=== PATIENT | female | born 1970 | race Caucasian/White ===

== ENCOUNTER → 2023-05-01 15:43 | Outpatient (REF) | payer OTHER, SELFPAY ==
[2023-05-01 16:19] LABS: % Basophils 0.5 % (0-2); % Eosinophils 1.1 % (0-6); % Immature Granulocytes 0.2 % (0-0.5); % Lymphocytes 25.9 % (20.5-51.1); % Monocytes 7.9 % (1.7-9.3); % Neutrophils 64.4 % (42.2-75.2); Absolute Basophils 0.1 10^3/uL (0-0.2); Absolute Eosinophils 0.1 10^3/uL (0-0.7); Absolute Lymphocytes 2.4 10^3/uL (1.2-3.4); Absolute Monocytes 0.7 10^3/uL (0.1-0.6); Absolute Neutrophils 5.9 10^3/uL (1.4-6.5); Hematocrit 39.5 % (37.0-47.0); Mean Corp Hgb Conc. 35.4 g/dL (33.0-37.0); Mean Corpuscular Hgb 31.3 pg (27.0-31.0); Mean Corpuscular Volume 88.2 fL (81.0-99.0); Mean Platelet Volume 9.5 fL (7.4-10.4); Nucleated Red Blood Cells % 0 %; Platelet Count 344 10^3/uL (130-400); Red Blood Cell Count 4.48 10^6/uL (4.20-5.40); Red Cell Dist. Width 12.1 % (11.5-14.5); White Blood Cell Count 9.1 10^3/uL (4.8-10.8)
[2023-05-01 16:25] LABS: ALT (SGPT) 14 U/L (0-35); AST (SGOT) 21 U/L (14-36); Albumin 4.8 g/dl (3.5-5.0); Alkaline Phosphatase 71 U/L (38-126); Blood Urea Nitrogen 11 mg/dl (7-17); Calcium 10.3 mg/dl (8.4-10.2); Carbon Dioxide 26 mmol/L (22-30); Chloride 98 mmol/L (98-107); Glucose 104 mg/dl (70-99); Potassium 4.6 mmol/L (3.5-5.1); Sodium 139 mmol/L (135-145); Total Bilirubin 0.9 mg/dl (0.2-1.3); Total Protein 7.9 g/dl (6.3-8.2); eGFR > 60.00
== END ==
LOC: REG 15:43
PROVIDERS: ATTENDING PHYSICIAN Nurse Practitioner Primary Care
DX: R10.32 Left lower quadrant pain (principal); R10.814 Left lower quadrant abdominal tenderness
CPT/HCPCS: 36415; 80053; 85025

== ENCOUNTER → 2023-05-02 08:17 | Outpatient (REF) | payer OTHER, SELFPAY | LOC: RAD 08:17 | PROVIDERS: ATTENDING PHYSICIAN Nurse Practitioner Primary Care | DX: R10.32 Left lower quadrant pain (principal); R10.814 Left lower quadrant abdominal tenderness | CPT/HCPCS: 74177; Q9967 ==

== ENCOUNTER → 2023-07-04 11:25 | Outpatient (REF) | payer OTHER, SELFPAY ==
[2023-07-04 12:09] LABS: % Basophils 0.5 % (0-2); % Eosinophils 1.3 % (0-6); % Immature Granulocytes 0.2 % (0-0.5); % Lymphocytes 28.1 % (20.5-51.1); % Monocytes 6.8 % (1.7-9.3); % Neutrophils 63.1 % (42.2-75.2); Absolute Eosinophils 0.1 10^3/uL (0-0.7); Absolute Lymphocytes 1.8 10^3/uL (1.2-3.4); Absolute Monocytes 0.4 10^3/uL (0.1-0.6); Hematocrit 38.3 % (37.0-47.0); Mean Corp Hgb Conc. 33.9 g/dL (33.0-37.0); Mean Corpuscular Hgb 30.6 pg (27.0-31.0); Mean Corpuscular Volume 90.1 fL (81.0-99.0); Mean Platelet Volume 9.4 fL (7.4-10.4); Nucleated Red Blood Cells % 0 %; Platelet Count 304 10^3/uL (130-400); Red Blood Cell Count 4.25 10^6/uL (4.20-5.40); White Blood Cell Count 6.3 10^3/uL (4.8-10.8)
[2023-07-04 12:43] LABS: ALT (SGPT) 18 U/L (0-35); AST (SGOT) 23 U/L (14-36); Albumin 4.7 g/dl (3.5-5.0); Alkaline Phosphatase 68 U/L (38-126); Blood Urea Nitrogen 11 mg/dl (7-17); Carbon Dioxide 26 mmol/L (22-30); Chloride 103 mmol/L (98-107); Glucose 87 mg/dl (70-99); Potassium 4.7 mmol/L (3.5-5.1); Sodium 138 mmol/L (135-145); Total Bilirubin 0.5 mg/dl (0.2-1.3); Total Protein 7.4 g/dl (6.3-8.2); eGFR > 60.00
== END ==
LOC: RAD 11:25
PROVIDERS: ATTENDING PHYSICIAN Nurse Practitioner Family; FAMILY PHYSICIAN Nurse Practitioner Primary Care
DX: R10.32 Left lower quadrant pain (principal)
CPT/HCPCS: 36415; 74177; 80053; 85025; Q9967

== ENCOUNTER → 2023-09-01 14:00 | Outpatient (REF) | payer OTHER, SELFPAY ==
[2023-09-01 14:32] LABS: % Basophils 0.3 % (0-2); % Eosinophils 0.3 % (0-6); % Immature Granulocytes 0.3 % (0-0.5); % Lymphocytes 20.1 % (20.5-51.1); Absolute Lymphocytes 1.9 10^3/uL (1.2-3.4); Absolute Monocytes 0.7 10^3/uL (0.1-0.6); Absolute Neutrophils 6.8 10^3/uL (1.4-6.5); Hematocrit 39.8 % (37.0-47.0); Hemoglobin 13.9 g/dL (12.0-16.0); Mean Corp Hgb Conc. 34.9 g/dL (33.0-37.0); Mean Corpuscular Hgb 30.5 pg (27.0-31.0); Mean Corpuscular Volume 87.3 fL (81.0-99.0); Mean Platelet Volume 9.3 fL (7.4-10.4); Nucleated Red Blood Cells % 0 %; Platelet Count 347 10^3/uL (130-400); Red Blood Cell Count 4.56 10^6/uL (4.20-5.40); White Blood Cell Count 9.4 10^3/uL (4.8-10.8)
[2023-09-01 14:46] LABS: ALT (SGPT) 20 U/L (0-35); AST (SGOT) 24 U/L (14-36); Albumin 5.1 g/dl (3.5-5.0); Alkaline Phosphatase 75 U/L (38-126); Amylase 53 U/L (30-110); Blood Urea Nitrogen 10 mg/dl (7-17); Calcium 10.3 mg/dl (8.4-10.2); Carbon Dioxide 27 mmol/L (22-30); Chloride 103 mmol/L (98-107); Glucose 93 mg/dl (70-99); Lipase 57 U/L (23-300); Potassium 4.8 mmol/L (3.5-5.1); Sodium 142 mmol/L (135-145); Total Bilirubin 0.5 mg/dl (0.2-1.3); eGFR > 60.00
== END ==
LOC: REG 14:00
PROVIDERS: ATTENDING PHYSICIAN Nurse Practitioner Family
DX: R10.84 Generalized abdominal pain (principal); Z87.19 Personal history of other diseases of the digestive system; K21.9 Gastro-esophageal reflux disease without esophagitis; J45.20 Mild intermittent asthma, uncomplicated; Z13.89 Encounter for screening for other disorder
CPT/HCPCS: 36415; 80053; 82150; 83690; 85025

== ENCOUNTER 2023-09-02 23:43 | Inpatient (IN) | payer OTHER, SELFPAY ==
[2023-09-02 20:04] VITALS: BP 118/82
[2023-09-02 20:18] VITALS: BMI 26.4
[2023-09-02 20:19] VITALS: BP 138/101
[2023-09-02 20:36] VITALS: BP 110/82
[2023-09-02 20:40] LABS: Urine Albumin Negative (Neg - Trace); Urine Bilirubin Negative (Negative); Urine Character Clear (Clear); Urine Color Yellow; Urine Glucose Negative (Negative); Urine Ketone Trace (Negative); Urine Leukocyte Trace (Negative); Urine Nitrite Negative (Negative); Urine Occult Blood Negative (Negative); Urine Urobilinogen Negative (Neg - 1+)
[2023-09-02 20:49] LABS: Urine Red Blood Cell 0-2 /HPF (0-2)
[2023-09-02 20:53] LABS: Urine Bacteria Few (Negative)
--- NOTE | 2023-09-02 20:53 | ED.GENMED ---
History of Present Illness
General
Chief Complaint: Abdominal Pain
Source: patient
Exam Limitations: none
Time Seen by Provider: 09/02/23 20:17
Nursing documentation reviewed up to this point in time: agreed with
Travel History
Have you had any contact with someone who has COVID-19?: No
Do you have any symptoms of coronavirus? Fever > 100 degrees, chills, cough, shortness of breath, sore throat, loss of taste or smell, muscle aches, or headache?: No
History of Present Illness
History of Present Illness:
Patient is a 53-year-old female who present to the ER complaining of right sided abdominal pain. She has had this pain for the past several days. She reports it felt similar to her diverticulitis and her family doctor ordered an outpatient CAT
scan. She was unaware however the CAT scan showed a hepatic right lobe cyst which seemed inflamed or infected. She was unaware of this cyst. Her family doctor attempted to call GI to try to follow-up with them this week however she presents with
worsening pain. She complains of right-sided abdominal pain and has pain worse with taking a deep breath. She denies however feeling short of breath. She has intermittent chills and feels nauseous but has not vomited
Past History
Past History
ED Past Medical History: Asthma, Hypercholesterolemia, Hypothyroidism and Other (has been told she has a herniated disc.)
ED Past Surgical History: Appendectomy, Orthopedic (Right and left shoulder repair) and Other (Agree with past surgical history)
Social History
Tobacco: Non-smoker
Alcohol: Occasional
Personal:
Living: with family
Employment: Employed (nurse)
Review of Systems
Review of Systems
Allergies reviewed?: Yes
All Other Systems: ROS reviewed and negative except as documented in HPI and ROS
Constitutional: Reports no symptoms
ABD/GI: Reports abdominal pain and nausea; Denies vomiting, diarrhea or constipated
: Reports no symptoms
Musculoskeletal: Reports no symptoms
Skin: Reports no symptoms
Neurological: Reports no symptoms
Psychiatric: Reports no symptoms
Phy Exam
General Physical Exam
General Presentation: well appearing
General age: appears stated age
General Skin: warm and dry
General Habitus: normal
General Mental: alert
General Hydration: appears well hydrated
Neurological Exam
Neurological Exam: alert and oriented x3
Musculoskeletal Exam
Musculoskeletal Exam: full ROM
Skin Exam
Skin Exam: normal color and warm/dry
Psychiatric Exam
Psychiatric Exam: normal mood/affect
Course
Orders/Labs/Results
Orders:
Orders
09/02/23 20:31
Urinalysis Reflex To Culture Urgent
Date Specimen was Collected: 09/02/23
Time Specimen was Collected: 20:17
Urine Microscopic Reflex Cult Urgent
09/02/23 20:54
IV Insert/Care/Rem.- Treatment PRN
0.9% Sodium Chloride 1000 ml [Nss] 1,000 ml IV BOLUS
Ketorolac [Toradol] 15 mg IV NOW STA
Ondansetron Injectable [Zofran] 4 mg IV NOW STA
09/02/23 21:05
Complete Blood Count/With Diff Urgent
Comprehensive Metabolic Panel Urgent
Lactic Acid Q4H
Comment: CANCEL 2nd LACTIC ACID IF 1st LACTIC ACID IS LESS THAN 2
Blood Culture Q30M
JAIME Source: Blood/Venous
Specimen Description:
09/02/23 21:06
Blood Culture Q30M
JAIME Source: Blood/Venous
Specimen Description:
09/03/23 01:00
Lactic Acid Q4H
Comment: CANCEL 2nd LACTIC ACID IF 1st LACTIC ACID IS LESS THAN 2
Abnormal Lab Results
09/02/23 09/02/23
20:31 21:05
Absolute Monos (auto) 0.8 H 10^3/uL
(0.1-0.6)
Glucose 178 H mg/dl
(70-99)
Urine Ketones Trace A
(Negative)
Leukocyte Esterase Rfl Trace A
(Negative)
Urine Bacteria (Reflex) Few A
(Negative)
09/02/23 21:05
09/02/23 21:05
Vital Signs
Initial and Last Documented VS:
Initial Vital Signs
Temp Pulse Resp BP Pulse Ox
98.5 F 107 18 118/82 96
09/02/23 20:04 09/02/23 20:04 09/02/23 20:04 09/02/23 20:04 09/02/23 20:04
Last Documented Vital Signs
Temp Pulse Resp BP Pulse Ox
98.7 F 99 17 111/79 96
09/02/23 20:25 09/02/23 21:00 09/02/23 21:00 09/02/23 21:00 09/02/23 21:00
MDM/Problems Addressed
MDM/Problems Addressed:
Patient is a 53-year-old female who has had pain in the right abdomen/mid abdomen for the past several days associate with nausea chills. She had outpatient CAT scan ordered by family doctor which showed acute inflammatory change of hepatic lobe 5
cm cyst suspicious for hepatic cyst infection. She is afebrile here with normal white count normal lactic acid. She presented to the ER today because of worsening pain. She was given Toradol here which has improved her symptoms.
Case discussed with Dr. Galindo of GI , will admit to the hospital service. Patient will likely need ID and IR for drain as recommended by GI blood cultures were done. Discussed with admitting hospitalist
*Radiology
Radiology exam reviewed: radiology read reviewed
*Pulse Oximetry
Patient hypoxic: no
*Critical Care Note
Total Time (30-74mins, 75-104mins- exclusive of procedures): Not Applicable
Patient Management
Discussion with other providers: Newspaper Photographer (GI Keli Galindo )
ED Attending Note
-
Portions of this chart may have been created with voice recognition software.� Occasional wrong word or��sound alike� substitutions may have occurred due to the inherent limitations of voice recognition software.
Discharge Plan
Departure
Patient Disposition: Admit
Date of Disposition: 09/02/23
Time of Disposition: 22:39
Admit to: Med/Surg
Admit to doctor: hospitalist
Presentation/result/management discussed w/ accepting MD/DO: Hospitalist
Patient with high blood pressure during this ER visit?: No
Condition: Fair
Covid-19: Not Applicable
Discharge Problem:
hepatic cyst infection
Prescriptions:
No Action
albuterol sulfate 1 PUFF HFA aerosol inhaler
2 puff inhalation Q4HPRN PRN (Reason: sob, wheezing)
budesonide-formoterol [Symbicort] 1 PUFF HFA aerosol inhaler
2 puff inhalation R BID PRN (Reason: Lung/breathing issues)
acetaminophen 325 MG tablet
650 mg PO Q6HPRN PRN (Reason: mild pain)
levothyroxine 75 MCG tablet
75 mcg PO DAILY
ibuprofen 200 MG tablet
200 mg PO Q4HPRN PRN (Reason: mild pain)
multivitamin with folic acid [Tab-A-Kinga] 1 TABLET tablet
1 tab PO DAILY
metformin 500 mg Tablet
500 mg PO BID
docusate sodium [Colace] 100 mg Capsule
100 mg PO DAILY
Probiotic 20 billion cell Capsule
20,000 mmu cells PO DAILY
Referrals:
Lanny Kaminski CRNP [Family Provider] -
Interventions
Interventions:
*Risk Screen - Suicide Last Done: 09/02/23 20:04
*General Assessment Last Done: 09/02/23 20:04
*Neglect/Abuse Screening Last Done: 09/02/23 20:04
ED- Fall Risk Assessment Last Done: 09/02/23 20:19
*ED COVID-19 Vaccine History Last Done: 09/02/23 20:46
KT-Liovwq-Vjdrfciioz Assessment Last Done: 09/02/23 20:19
Discharge Date and Time
Print Language: PORTUGUESE
[2023-09-02] MEDS: ZOFRAN 4 MG IV (20:59)
[2023-09-02] MEDS: TORADOL 15 MG IV (20:59)
[2023-09-02 21:00] VITALS: BP 111/79
[2023-09-02] MEDS: NSS 1000 IV (21:00)
[2023-09-02 21:15] LABS: % Basophils 0.6 % (0-2); % Eosinophils 0.8 % (0-6); % Immature Granulocytes 0.4 % (0-0.5); % Lymphocytes 22.7 % (20.5-51.1); % Monocytes 8.9 % (1.7-9.3); % Neutrophils 66.6 % (42.2-75.2); Absolute Basophils 0.1 10^3/uL (0-0.2); Absolute Eosinophils 0.1 10^3/uL (0-0.7); Absolute Lymphocytes 1.9 10^3/uL (1.2-3.4); Absolute Monocytes 0.8 10^3/uL (0.1-0.6); Absolute Neutrophils 5.7 10^3/uL (1.4-6.5); Hematocrit 37.7 % (37.0-47.0); Hemoglobin 13.7 g/dL (12.0-16.0); Mean Corp Hgb Conc. 36.3 g/dL (33.0-37.0); Mean Corpuscular Hgb 30.9 pg (27.0-31.0); Mean Corpuscular Volume 84.9 fL (81.0-99.0); Mean Platelet Volume 9.5 fL (7.4-10.4); Nucleated Red Blood Cells % 0 %; Platelet Count 339 10^3/uL (130-400); Red Blood Cell Count 4.44 10^6/uL (4.20-5.40); Red Cell Dist. Width 11.8 % (11.5-14.5); White Blood Cell Count 8.5 10^3/uL (4.8-10.8)
[2023-09-02 21:31] LABS: ALT (SGPT) 19 U/L (0-35); AST (SGOT) 24 U/L (14-36); Albumin 4.7 g/dl (3.5-5.0); Alkaline Phosphatase 75 U/L (38-126); Blood Urea Nitrogen 9 mg/dl (7-17); Calcium 9.9 mg/dl (8.4-10.2); Carbon Dioxide 24 mmol/L (22-30); Chloride 101 mmol/L (98-107); Estimated Creatinine Clearance 88 ml/min; Glucose 178 mg/dl (70-99); Lactic Acid 0.8 mmol/L (0.7-2.0); Potassium 3.8 mmol/L (3.5-5.1); Sodium 137 mmol/L (135-145); Total Bilirubin 0.5 mg/dl (0.2-1.3); Total Protein 7.4 g/dl (6.3-8.2); eGFR > 60.00
[2023-09-02 22:00] VITALS: BP 111/71
--- NOTE | 2023-09-02 22:53 | HPS.HSE ---
Addendum entered and electronically signed by Graham Posey MD 09/02/23 23:27:
I saw and examined the patient.
The PRIVACY MANAGER or PA's note was reviewed and I agree with the note.
Comment: see update note
Original Note:
Family Physician
-
Family Physician: ILA Avila
Chief Complaint
-
Abdominal Pain
History of Present Illness
This is a 53 year old female with past medical history of diverticulitis, diabetes mellitus, asthma, and hypothyroidism who presents to the emergency department for abdominal pain. The patient reports the pain is in the right upper quadrant and
epigastric region since Friday08/29/2023. Patient reports that the pain was a 3/10 when it began but worsened to a 9-10/10 today. The patient reports the pain is worse with inspiration and that she was experiencing chills and felt fatigued. Patient
was seen by her PCP as outpatient who ordered a CT scan which raised suspicion for an infected hepatic cyst and she was sent to the emergency department for evaluation. Patient denies fevers, or vomiting.
Medical History
Past Medical History
Past Medical History: Reports Other
Additional Past Medical History:
Diabetes Mellitus, Type II
Asthma
Hypothyroidism
Past Surgical History: Reports Other
Additional Past Surgical History:
Appendectomy
Bilateral Shoulder Surgery
[place]
Dental Surgery
Social History
Tobacco: Non-smoker
Alcohol: None
Family History
Family History: Not pertinent
Allergies / Home Medications
Allergies reflects when Allergies were last updated in [facility].
Home Medications with original date entered in [facility]
Allergy/Medication List:
Allergies
Allergy/AdvReac Type Severity Reaction Status Date / Time
acetaminophen [From Percocet] Allergy Itching Verified 02/18/21 10:42
oxycodone HCl [From Percocet] Allergy Itching Verified 02/18/21 10:42
pantoprazole sodium Allergy Swelling Verified 02/18/21 10:42
[From Protonix]
Home Medications
albuterol sulfate 90 mcg/actuation aerosol inhaler 2 puff inhalation Q4HPRN PRN sob, wheezing 02/18/21
budesonide-formoterol HFA 160 mcg-4.5 mcg/actuation aerosol inhaler (Symbicort) 2 puff inhalation R BID PRN Lung/breathing issues 02/18/21
acetaminophen 325 mg tablet 650 mg PO Q6HPRN PRN mild pain 02/20/21
ibuprofen 200 mg tablet 200 mg PO Q4HPRN PRN mild pain 02/20/21
levothyroxine 75 mcg tablet 75 mcg PO DAILY Thyroid 02/20/21
multivitamin with folic acid 400 mcg tablet (Tab-A-Kinga) 1 tab PO DAILY Supplement 02/20/21
docusate sodium 100 mg capsule (Colace) 100 mg PO DAILY 09/02/23
lactobacillus comb no.10 20 billion cell capsule (Probiotic) 20,000 mmu cells PO DAILY 09/02/23
metformin 500 mg tablet 500 mg PO BID 09/02/23
Review of Systems
-
A 12 point ROS was completed and negative except as noted: Yes
Constitutional: Reports Chills; Denies Fever
Respiratory: Denies Cough or Trouble Breathing
Cardiac: Denies Chest Pain or Palpitations
Abdomen/GI: Reports See HPI
Physical Exam
Vital Signs
Vital Signs
Temp Pulse Resp BP Pulse Ox
98.7 F 75 12 111/71 96
09/02/23 20:25 09/02/23 22:00 09/02/23 22:00 09/02/23 22:00 09/02/23 21:00
Physical Exam
General: Comfortable and Conversant
HEENT: Anicteric and Moist mucous membranes
Respiratory: Clear and Non Labored Respirations
Cardiac: S1/S2 and Regular Rhythm
GI: Soft and Tender
Rectal: Deferred by Provider
Musculoskeletal: No Clubbing, No Cyanosis and No Edema
Skin: Warm and Dry
Neuro: Awake, Alert and Nonfocal/grossly intact
Psych: Calm
Laboratory Results
-
09/02/23 21:05
09/02/23 21:05
Laboratory Results
Lactic Acid 0.8 mmol/L (0.7-2.0) 09/02/23 21:05
Total Bilirubin 0.5 mg/dl (0.2-1.3) 09/02/23 21:
AST 24 U/L (14-36) 09/02/23 21:05
ALT 19 U/L (0-35) 09/02/23 21:05
Alkaline Phosphatase 75 U/L (38-126) 09/02/23 21:05
Data Reviewed
-
CT Scan: Report Reviewed by me
Lab Data: Labs Reviewed by me
Impression/Plan
-
Infected Hepatic Cyst
-Consult IR for drainage
-Consult ID for antibiotics recommendation
-Start empiric Zosyn
-Await blood cultures
Diabetes Mellitus, Type II
-Hold metformin post CT scan with IV contrast
-Monitor sugars and continue coverage insulin
Asthma, no acute exacerbation
-Continue Symbicort
Hypothyroidism
-Continue levothyroxine
DVT proph: SCDs
Code Status: Full Code
[2023-09-02 23:00] VITALS: BP 110/78
--- NOTE | 2023-09-02 23:12 | W.PN.UPDATE ---
Addendum entered and electronically signed by Graham Posey MD 09/02/23 23:26:
This note serves as an addendum to the H&P by italian tutor CHELSIE Elba SINCLAIR
Original Note:
Update Note
Progress Note Update
HPI
53F prediabetic HX Simple right lobe hepatic cyst as of 07/16/23 CT AP seen at ER for abdominal pain
Evaluation of abdominal pain:
- acute non traumatic worsening RUQ and epigastric pain since Friday08/30/23
- currently pain is 9/10
- worse with deep breathing
- POS intermittent chills and nausea this . No vomiting
- felt like prio acute diverticulitis
- OP CT AP by PCP suggest hepatic right lobe cyst which seemed inflamed or infected.
- HX Diverticulitis in Apr and June of this year treated with Augmentin
At ER
severe abdominalgia
s/p IV Toradol decreased pain
PMHX
Asthma
Hypercholesterolemia
Hypothyroidism
Herniated disc
PSHX
Appendectomy
Right and left shoulder repair
SHx
Tobacco: Non-smoker
Alcohol: Occasional
Personal:
Living: with family
Employment: Employed (nurse)
Reviewed VS: Afebrile HR 100 BP 110/70
PE
Gen: non toxic looking
HEENT: anicteric
Neck: supple
Lungs: CTA
Cor: RRR ST
Abdomen: soft, mild tenderness at RHC, pain with deep breathing , no guarding , NRT, active BS
OPERATING ROOM RN: AAO3
MS: no edema
Psych: appropriate
Data
Unremarkable CBC
Normal platelets
Unremarkable
NEG LA
BC x 2 sent
09/02/23 CT Abd/pelvis W Iv Cont
1. Acute inflammatory change of hepatic right lobe 5 cm cyst. No associated increased attenuation to suggest hemorrhagic cyst. Findings are therefore suspicious for hepatic cyst infection. No other acute abnormality identified.
2. Unchanged 9 4 mm nodule left lower lobe. Chronic mild changes of fibrosis bilateral lung bases.
3. Diverticulosis without diverticulitis.
07/04/23 CT Abd/pel W Iv And Oral Contr
1. Simple right lobe hepatic cyst as well as additional subcentimeter low-attenuation scattered hepatic lesions too small to characterize.
2. Descending and sigmoid colon diverticulosis. Possible short segment wall thickening of the distal descending colon which is at least suspicious for mild uncomplicated acute inflammatory/infectious process such as diverticulitis.
Last hospitalist admission: 02/20/21- 02/24/21
PRIMARY DIAGNOSES:
1. COVID pneumonia with respiratory insufficiency.
2. Syncope, suspected volume depletion.
3. Mild transaminitis.
ASSESSMENT & PLAN
Suspicious for hepatic cyst infection.
CT suspect acute inflammatory change of hepatic right lobe 5 cm cyst.
Acute worsening severe RUQ and epigastric pain and tenderness with ST
HX Diverticulitis in Apr and June of this year
- BCx x2 sent
- check PCT, ESR and CRP
- sips of clear and IVF
- Empiric Zosyn
- PRN narcotic analgesia
- DC NSAIDs
- Consult: GI, IR and ID
Hypothyroid
- on Synthroid
DVT Px: SCD
Code: Full
IP TLM
[2023-09-02] MEDS: DILAUDID 0.5 MG IV (23:18)
[2023-09-02 23:22] LABS: Erythrocyte Sed Rate 30 mm/hour (0-20)
[2023-09-02 23:34] LABS: Procalcitonin < 0.05 ng/ml (0.0-0.25)
[2023-09-03] VITALS (19 sets, daily range): BP systolic 68–132; BP diastolic 59–91; BMI 26.3
[2023-09-03 00:26] LABS: Glucose - Point of Care 81 mg/dl (70-99)
[2023-09-03] MEDS: NSS 1000 IV ×2 (00:29→17:12)
[2023-09-03] MEDS: ZOSYN 50 IV ×5 (00:30→23:48)
--- NOTE | 2023-09-03 00:30 | PTCARENOTE ---
Received patient from ED into room 2123. Ambulated to the bed from the hallway, needs no assistance. AAOx3. VSS. Reports pain of 3/10 when not moving, 6-7/10 during inspiration. See assessment. IVF started at 80 ml/hr into R AC. Oriented pt to room.
Resting comfortably, no complaints at this time, call arnold within reach.
[2023-09-03] MEDS: SYNTHROID 75 MCG PO (05:54)
[2023-09-03 06:03] LABS: Glucose - Point of Care 77 mg/dl (70-99)
[2023-09-03] MEDS: TYLENOL 650 MG PO ×2 (06:06→10:32)
--- NOTE | 2023-09-03 07:12 | CON.GI ---
Addendum entered and electronically signed by Hayde Galindo DO 09/03/23 11:21:
Patient seen and examined independently of LIA. I agree with her note with my additions below
Ronnie is a 53-year-old female with history of GERD, prior diverticulitis, advanced rectal polyp that was removed via EMR who comes in with acute onset abdominal pain in the right upper quadrant that is worse with inspiration. It started on
Friday and she felt unwell, almost viral-like but had no fever but did have some mild chills. She had a decreased appetite and did not eat much. Denies any nausea or vomiting, has difficulty laying on her left side because of the pain. It is
tolerable unless she takes a deep breath. She denies any other significant GI symptoms.
In the emergency room she had a CT scan with IV contrast and oral contrast. Her gallbladder slightly contracted but otherwise unremarkable, pancreas and spleen are unremarkable. No inflammatory reaction throughout the opacified bowel. Large
number of distal colonic diverticula but no diverticulitis.
In the inferior right lobe of the liver just adjacent to the duodenum there is a 5 cm cyst which shows simple fluid attenuation. It is unchanged from the CT scan from June but there is some very mild cyst wall thickening and mild enhancement with
a very small amount of inflammatory stranding along the anterior and inferior aspects of the cyst. No internal increased attenuation or gas. Mild enhancement of the hepatic parenchyma surrounding the cyst. It is not compressing the duodenum but
is adjacent. There is no ductal dilatation.
She is afebrile, white count is 6.2, liver enzymes are normal with an ALT of 19, AST of 24, total bilirubin of 0.6, alkaline phosphatase 68, negative procalcitonin. Blood cultures are pending. Zosyn was started empirically and ID has been consulted
# Abdominal pain with inspiration -clinically and on imaging her picture fits with a symptomatic hepatic cyst. Other etiologies for her pain -doubt cholecystitis
# Symptomatic hepatic cyst 5 cm -with very mild enhancement surrounding the cyst with very mild stranding, adjacent to the duodenum but not compressing it
-- Blood cultures are pending and empiric antibiotics were started
-- ID has been consulted
-- Patient is symptomatic from the cyst and have reached out to IR to see if they could possibly drain it
-- I have also reached out to one of the cleaner assistant at [facility] as a curbside and awaiting response
-- I did review the images with ID and gen surgery
-- In the meantime clear liquid diet
Original Note:
Consultation
-
Date/Time Consultation Requested: 09/03/23 0000
Date/Time Consultation Performed: 09/03/23 0845
Requesting Provider: Christiana Burnham PA-C
Performing Provider: LIA Frank, Hayde Galindo DO
Reason for Consultation: hepatic cyst
Medical History
Chief Complaint / HPI
History of Present Illness:
Pt is a 53yo with hx asthma, hypothyroidism, GERD, NIDDM, covid with concern for long covid symptoms, diverticulitis, TA polyps, rectal polyp with low grade dysplasia prior EMR in 2018. She had follow up EGD/colon in 2021 with gastric polyps,
erythema, diverticulosis, hemorrhoids, rectal scar and DC TA polyp. She relates in April and June she had CT confirmed diverticulitis with OP antibiotic treatment with improvement. Last CT in June with also noted simple hepatic cyst with
additional subCM low attenuation hepatic lesions. She now presents with onset of abdominal pain in right upper quadrant. Pain was up to 9/10 and worse with deep breath and chill without fever but some increased fatigue and decreased appetite. On
admission repeat CT with concern for inflammatory changes around right 5 cm hepatic cyst with concern for infection. Also noted 4 mm nodular opacity and diverticulosis without diverticulitis.
At this time she admit to chronic GERD on Pepcid and nausea without vomiting. Abdominal pain is 9/10 with deep breath on admission. 3/10 at rest and now 6/10 after admission with pain meds. She describes pain as fullness in RUQ. She also
has chronic constipation with also hx thyroid disease with improvement with Colace. No issues with rectal bleeding.
Past Medical History
Past Medical History: Asthma, Cancer (basal cell CA, squamous cell CA), GERD, Hypothyroidism, NIDDM and Other (herniated, allergic Rhinitis, osteo knee, meniscus tear, covid with long covid symptoms, rectal polyps with low grade dysplasia s/p EMR
2018)
Past Surgical History: Appendectomy, Orthopedic (b/l shoulder surgery) and Other (wisdom teeth, dental surgery)
Social History
Tobacco: Non-Smoker
Alcohol: None
Drug: None
Personal:
Living: With Family
Family History
Family History: Other (no family hx colon CA or polyps)
Allergies / Home Medications
Allergy/AdvReac Type Severity Reaction Status Date / Time
acetaminophen [From Percocet] Allergy Itching Verified 02/18/21 10:42
oxycodone HCl [From Percocet] Allergy Itching Verified 02/18/21 10:42
pantoprazole sodium Allergy Swelling Verified 02/18/21 10:42
[From Protonix]
�Medication �Instructions �Recorded
albuterol sulfate 90 mcg/actuation 2 puff inhalation Q4HPRN PRN sob, 02/18/21
aerosol inhaler wheezing
budesonide-formoterol HFA 160 2 puff inhalation R BID PRN 02/18/21
mcg-4.5 mcg/actuation aerosol Lung/breathing issues
inhaler (Symbicort)
acetaminophen 325 mg tablet 650 mg PO Q6HPRN PRN mild pain 02/20/21
ibuprofen 200 mg tablet 200 mg PO Q4HPRN PRN mild pain 02/20/21
levothyroxine 75 mcg tablet 75 mcg PO DAILY Thyroid 02/20/21
multivitamin with folic acid 400 1 tab PO DAILY Supplement 02/20/21
mcg tablet (Tab-A-Kinga)
docusate sodium 100 mg capsule 100 mg PO DAILY 09/02/23
(Colace)
lactobacillus comb no.10 20 20,000 mmu cells PO DAILY 09/02/23
billion cell capsule (Probiotic)
metformin 500 mg tablet 500 mg PO BID 09/02/23
Review of Systems
-
History Source: Patient
Constitutional: Reports Fatigue, Chills and Other (decreased appetite )
EENT: Reports No Symptoms
Respiratory: Reports Trouble Breathing (with RUQ pain worse with deep breath )
Cardiac: Reports Palpitations (prior to admission with increased HR noted HR 107 on admission)
Abdomen/GI: Reports Abdominal Pain and Nausea
: Reports No Symptoms
Musculoskeletal: Reports No Symptoms
Skin: Reports No Symptoms
Neurological: Reports Weakness
Endocrine: Reports No Symptoms
Hematologic/Lymphatic: Reports No Symptoms
Vital Signs
Temp Pulse Resp BP Pulse Ox
97.1 F 73 20 105/70 98
09/03/23 03:07 09/03/23 03:07 09/03/23 03:07 09/03/23 03:07 09/03/23 03:07
Physical Exam
Exam
General: Well Developed, Well Nourished and No Apparent Distress
HEENT: Normocephalic and Anicteric
Respiratory: Clear
Cardiac: Regular Rhythm
GI: Soft, Non Distended and Tender (RUQ pain with minimal guarding)
Musculoskeletal: No Clubbing and No Cyanosis
Skin: Warm and Dry
Neuro: Awake, Alert and AO x 3
Psych: Calm
Results
WBC 8.5 10^3/uL (4.8-10.8) 09/02/23 21:05
Hgb 13.7 g/dL (12.0-16.0) 09/02/23 21:05
Hct 37.7 % (37.0-47.0) 09/02/23 21:05
MCV 84.9 fL (81.0-99.0) 09/02/23 21:05
Plt Count 339 10^3/uL (130-400) 09/02/23 21:05
Absolute Neuts (auto) 5.7 10^3/uL (1.4-6.5) 09/02/23 21:05
Sodium 137 mmol/L (135-145) 09/02/23 21:05
Potassium 3.8 mmol/L (3.5-5.1) 09/02/23 21:05
Chloride 101 mmol/L (98-107) 09/02/23 21:05
Carbon Dioxide 24 mmol/L (22-30) 09/02/23 21:05
BUN 9 mg/dl (7-17) 09/02/23 21:05
Creatinine 0.7 mg/dL (0.6-1.0) 09/02/23 21:05
Calcium 9.9 mg/dl (8.4-10.2) 09/02/23 21:05
Total Bilirubin 0.5 mg/dl (0.2-1.3) 09/02/23 21:05
AST 24 U/L (14-36) 09/02/23 21:05
ALT 19 U/L (0-35) 09/02/23 21:05
Alkaline Phosphatase 75 U/L (38-126) 09/02/23 21:05
Diagnostic Image Results:
09/02/23 CT Abd/pelvis W Iv Cont
1. Acute inflammatory change of hepatic right lobe 5 cm cyst. No associated increased attenuation to suggest hemorrhagic cyst. Findings are therefore suspicious for hepatic cyst infection. No other acute abnormality identified.
2. Unchanged 9 4 mm nodule left lower lobe. Chronic mild changes of fibrosis bilateral lung bases.
3. Diverticulosis without diverticulitis.
05/02/23 CT Abd/pel W Iv And Oral Contr
1. Findings consistent with acute sigmoid diverticulitis. No evidence of extraluminal air or abscess formation.
2. No evidence of intestinal obstruction, nephrolithiasis, hydronephrosis, cholecystitis, or abscess formation.
07/04/23 CT Abd/pel W Iv And Oral Contr
Simple right lobe hepatic cyst as well as additional subcentimeter low-attenuation scattered hepatic lesions too small to characterize.
Descending and sigmoid colon diverticulosis. Possible short segment wall thickening of the distal descending colon which is at least suspicious for mild uncomplicated acute inflammatory/infectious process such as diverticulitis.
Prior GI Procedures:
EGD: 02/2022 - Normal esophagus.
- Z-line regular, 38 cm from the incisors.
- Erythematous mucosa in the antrum. Biopsied.
- A few gastric polyps. Resected and retrieved.
- Normal examined duodenum. Biopsied.
bx fundic gland polyp, neg intestinal metaplasia and dysplasia, no increased intraepithelial lymphocytes
Colonoscopy: 02/2022 Do - Non-bleeding internal hemorrhoids.
- Diverticulosis in the sigmoid colon and in the
descending colon.
- The examination was otherwise normal.
- The examined portion of the ileum was normal.
- Small healthy appearing scar in the rectum.
- One 3 mm polyp in the descending colon, removed with
a jumbo cold forceps. Resected and retrieved
bx tubular adenoma
Assessment / Plan
-
Pt is a 53yo with hx asthma, hypothyroidism, GERD, NIDDM, covid with concern for long covid symptoms, diverticulitis, TA polyps, rectal polyp with low grade dysplasia prior EMR in 2018. She had follow up EGD/colon in 2021 with gastric polyps,
erythema, diverticulosis, hemorrhoids, rectal scar and DC TA polyp. She relates in April and June she had CT confirmed diverticulitis with OP antibiotic treatment with improvement. Last CT in June with also noted simple hepatic cyst with
additional subCM low attenuation hepatic lesions. She now presents with onset of abdominal pain in right upper quadrant. Pain was up to 9/10 and worse with deep breath and chill without fever but some increased fatigue and decreased appetite. On
admission repeat CT with concern for inflammatory changes around right 5 cm hepatic cyst with concern for infection. Also noted 4 mm nodular opacity and diverticulosis without diverticulitis.
-RUQ pain with concern for 5 cm hepatic cyst with concern for infection (prior noted also some sub SM hepatic cysts)
-recent diverticulitis with confirmed diagnosis on CT x 2 in April and June with outpatient oral antibiotics
-tachycardia on admission now improved
-nausea
-constipation
other med problems:
-hypothyroidism
-asthma
-GERD
-NIDDM
-covid with concern for long covid and lung change in CT
-lung nodule- reviewed with patient
-hx colon polyps TA and rectal polyp low grade dysplasia with EMR in 2019
PLAN:
etiology of symptoms with concern for infected hepatic cyst with RUQ pain with inspiration and CT findings vs other
await IR and ID evaluation ? related to recent bout of diverticulitis x 2
follow fever curve
blood cx pending
cont IV Zosyn
reviewed CT with patient
currently NPO-- consider diet after IR eval
message sent to office for follow up with Dr. Bustamante after admission
-
-
Thank you for consultation and allowing me to participate in the patient's care. Please call the asset protection professional GI physician during the after hours with any questions or concerns.
[2023-09-03 07:30] LABS: Hematocrit 34.6 % (37.0-47.0); Hemoglobin 12.2 g/dL (12.0-16.0); Mean Corp Hgb Conc. 35.3 g/dL (33.0-37.0); Mean Corpuscular Hgb 30.9 pg (27.0-31.0); Mean Corpuscular Volume 87.6 fL (81.0-99.0); Mean Platelet Volume 9.5 fL (7.4-10.4); Platelet Count 284 10^3/uL (130-400); Red Blood Cell Count 3.95 10^6/uL (4.20-5.40); Red Cell Dist. Width 11.9 % (11.5-14.5); White Blood Cell Count 6.2 10^3/uL (4.8-10.8)
[2023-09-03 07:58] LABS: ALT (SGPT) 19 U/L (0-35); AST (SGOT) 24 U/L (14-36); Albumin 3.9 g/dl (3.5-5.0); Alkaline Phosphatase 68 U/L (38-126); Blood Urea Nitrogen 8 mg/dl (7-17); Calcium 9.4 mg/dl (8.4-10.2); Carbon Dioxide 25 mmol/L (22-30); Chloride 106 mmol/L (98-107); Estimated Creatinine Clearance 88 ml/min; Glucose 93 mg/dl (70-99); Potassium 4.6 mmol/L (3.5-5.1); Sodium 139 mmol/L (135-145); Total Bilirubin 0.6 mg/dl (0.2-1.3); Total Protein 6.3 g/dl (6.3-8.2); eGFR > 60.00
[2023-09-03 08:53] LABS: Glycohemoglobin (HgbA1c) 5.7 % (4.0-5.6)
[2023-09-03 09:57] LABS: PT 13.2 Sec (11.4-14.6)
[2023-09-03 12:34] LABS: Glucose - Point of Care 69 mg/dl (70-99)
[2023-09-03] MEDS: DEXTROSE 50% SYRINGE 12.5 GRAMS IV (12:46)
[2023-09-03 13:19] LABS: Glucose - Point of Care 127 mg/dl (70-99)
--- NOTE | 2023-09-03 15:18 | CM ---
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
drove and worked. No Psychiatric hospitalizations. Pharmacy is [facility] on [address] in [place] and PCP is [facility]-Lanny Kaminski NP. Discharge Plan of Care TBD. Anticipate no needs. Watch for possible IV/AB at home.
--- NOTE | 2023-09-03 16:01 | CON.ID ---
Consultation
-
Date/Time Consultation Requested: 09/03/2023 00:02
Date/Time Consultation Performed: 09/03/2023 1230
Requesting Provider: Christiana Burnham
Performing Provider: Dr. Valdes
Reason for Consultation: Hepatic cyst
Chief Complaint / Past History
History of Present Illness
Ronnie Donovan is a 53-year-old female being evaluated at request of Christiana Burnham in regards to a possibly infected hepatic cyst. History is obtained from chart review, along with patient interview.
The patient reports that since the beginning of year she has had 2 bouts of diverticulitis. She notes that the pain during these episodes was usually in the left lower quadrant, and resolved without issue. Approximately 5 days ago she developed
some right upper quadrant pain and cramping. She noted that the discomfort persisted, and saw her PCP 3 days ago. She had a CAT scan performed yesterday morning which was concerning for a hepatic cyst, and she was to see Gastroenterology, but the
pain persisted and she came to the emergency room for further evaluation late yesterday. She notes that the pain is shooting discomfort mostly in the right upper quadrant especially with deep inspiration. It does not radiate to any area. She
denies any recent fevers or chills. She has no other signs or symptoms of infection. She has no prior history of discomfort in the right upper quadrant.
Past History
Additional Past Medical History:
Asthma
Dyslipidemia
Hypothyroidism
Diverticulitis
Additional Past Surgical History:
Appendectomy
Bilateral shoulder surgery
Allergy History:
acetaminophen [From Percocet] Allergy (Verified 02/18/21 10:42)
Itching
oxycodone HCl [From Percocet] Allergy (Verified 02/18/21 10:42)
Itching
pantoprazole sodium [From Protonix] Allergy (Verified 02/18/21 10:42)
Swelling
Medications Reviewed: Yes
Current Antibiotics:
Zosyn 3.375 g IV every 6 hours
Social History
Tobacco: Non-Smoker
Alcohol: Occasional
Drug: None
Personal:
Living: With Family
Employment: Employed
Family History
Family History: Not Pertinent
Review of Systems
Vital Signs
Temp Pulse Resp BP Pulse Ox
98.7 F 77 13 112/78 99
09/03/23 14:30 09/03/23 14:30 09/03/23 14:30 09/03/23 14:30 09/03/23 14:30
Physical Exam
Physical Exam
Constitutional: No Acute Distress, Well Developed, Comfortable and Non-toxic
Head: Normocephalic
Eyes: Pupils Equal, Pupils Round and No Conjunctival Hemorrhage
Oral: No Thrush and No Ulcers
Cardiovascular: S1/S2; Negative S3/S4 or Murmur
Pulmonary: Clear; Negative Wheezes, Rales or Rhonchi
Gastrointestinal: Soft, Tender (RUQ), Non Distended, Normal Bowel Sounds, No Rebound and No Guarding
Genito-Urinary: Negative Guan or CVA Tenderness
Extremities: Negative Edema, Cyanosis or Erythema
Skin: Warm and Dry; Negative Rash or Jaundice
Neurological: Awake and Alert
Psychological: Calm
Lab / Diagnostic Study Results
09/03/23 07:02
09/03/23 07:02
Abs Immat Gran (auto) 0.0 10^3/uL (0-0.05) 09/02/23 21:05
Absolute Neuts (auto) 5.7 10^3/uL (1.4-6.5) 09/02/23 21:05
Absolute Lymphs (auto) 1.9 10^3/uL (1.2-3.4) 09/02/23 21:05
Absolute Monos (auto) 0.8 10^3/uL (0.1-0.6) H 09/02/23 21:05
Absolute Basos (auto) 0.1 10^3/uL (0-0.2) 09/02/23 21:05
Immature Gran % 0.4 % (0-0.5) 09/02/23 21:05
Neutrophils % 66.6 % (42.2-75.2) 09/02/23 21:05
Lymphocytes % 22.7 % (20.5-51.1) 09/02/23 21:05
Monocytes % 8.9 % (1.7-9.3) 09/02/23 21:05
Eosinophils % 0.8 % (0-6) 09/02/23 21:05
Basophils % 0.6 % (0-2) 09/02/23 21:05
ESR 30 mm/hour (0-20) H 09/02/23 21:05
PT 13.2 Sec (11.4-14.6) 09/03/23 09:41
INR 1.00 09/03/23 09:41
Lactic Acid Cancelled 09/03/23 01:00
C-Reactive Protein 44.50 mg/L (0.0-10.00) H 09/02/23 21:05
Procalcitonin < 0.05 ng/ml (0.0-0.25) 09/02/23 22:56
Ur Squamous Epith Cells 6-10 /LPF (Few) 09/02/23 20:31
Microbiology Results
Micro:
09/02/23 21:05 Blood Culture - Pending
Blood/Venous
09/02/23 21:06 Blood Culture - Pending
Blood/Venous
Imaging:
09/02/2023 CT abdomen/pelvis with IV contrast: There are acute inflammatory changes of a right lobe hepatic cyst. It is approximately 5 cm in diameter. No associated increased attenuation to suggest hemorrhagic cyst. Findings are therefore
suspicious for hepatic cyst infection. No other acute abnormality identified. There is an unchanged 4 mm nodule in the left lower lobe. Diverticulosis is noted without diverticulitis. Please see full dictation for additional detail.
Assessment / Plan
Right upper quadrant abdominal discomfort
Hepatic cyst
Asthma
Dyslipidemia
Hypothyroidism
Diverticulitis
Recommendations:
At present, no overt signs of an infectious process; i.e. no fevers, leukocytosis etc.
Patient for aspiration of the cyst today. Will await further lab data to guide ongoing antimicrobial therapy.
If the cyst fluid does not appear overtly infected, will discontinue further Zosyn.
--- NOTE | 2023-09-03 16:02 | W.PN.HOSP.TC ---
Today's Communication/Plan
-
Empiric antibiotics.
Pending aspiration of the hepatic cyst
Assessment / Plan
Assessment / Plan
Impression:
Presentation with acute onset of right upper quadrant pain mostly on inspiration.
Symptomatic hepatic cyst confirmed with CT scan, findings consistent with 5 cm cyst in the inferior right lobe of the liver just adjacent to the duodenum.
Conditions prior to admission:
Hospitalization with sigmoid diverticulitis 07/03.
Hypothyroidism on replacement
Asthma without exacerbation
GERD
NIDDM.
COVID with concern for long COVID and chronic lung changes
Pulmonary nodules
History of colon polyps
Plan
09/02/23 CT Abd/pelvis W Iv Cont
1. Acute inflammatory change of hepatic right lobe 5 cm cyst. No associated increased attenuation to suggest hemorrhagic cyst. Findings are therefore suspicious for hepatic cyst infection. No other acute abnormality identified.
2. Unchanged 9 4 mm nodule left lower lobe. Chronic mild changes of fibrosis bilateral lung bases.
3. Diverticulosis without diverticulitis.
Empiric antibiotics
Interventional radiology consultation for percutaneous drain diagnostic and therapeutic
ID
Gastroenterology input appreciated
Hypothyroidism on replacement
Type 2 diabetes
Hold metformin acutely.
Anticipated Discharge: 24 - 48 hours
Subjective/Interval History
-
Date of Service: September 03, 2023
Objective Data
-
Labs:
Laboratory Results
09/03/23 09/03/23
07:02 09:41
WBC 6.2
Hgb 12.2
Hct 34.6 L
Plt Count 284
PT 13.2
INR 1.00
Sodium 139
Potassium 4.6
Chloride 106
Carbon Dioxide 25
BUN 8
Creatinine 0.7
Glucose 93
Calcium 9.4
Total Bilirubin 0.6
AST 24
ALT 19
Alkaline Phosphatase 68
Vital Signs:
Vital Signs
Temp Pulse Resp BP Pulse Ox
98.7 F 77 13 112/78 99
09/03/23 14:30 09/03/23 14:30 09/03/23 14:30 09/03/23 14:30 09/03/23 14:30
I&O
09/02/23 09/03/23 09/04/23
06:59 06:59 06:59
Intake Total 1000 / 1000
Balance 1000 / 1000
Physical Exam
-
General: Well Developed and No Apparent Distress
HEENT: Normocephalic, Atraumatic and Moist Mucous Membranes
Respiratory: Clear to Auscultation
Cardiac: Regular Rhythm and S1/S2; Negative Murmur, Rub or Gallop
GI: Soft, Nondistended, Normal Bowel Sounds and Other (Mild right upper quadrant tenderness); Negative Organomegaly
Rectal: Deferred by Provider
Musculoskeletal: No Clubbing, No Cyanosis and No Edema
Skin: Negative Rash
Neuro: Nonfocal/Grossly Intact
[2023-09-03] MEDS: DILAUDID 0.25 MG IV (16:11)
[2023-09-03] MEDS: TORADOL 15 MG IV (16:31)
[2023-09-03 17:16] LABS: Glucose - Point of Care 70 mg/dl (70-99)
--- NOTE | 2023-09-03 18:28 | PTCARENOTE ---
Pt. received from IR post hepatic cyst CHRIS drain placement. Pt. c/o of cramping and does not want Dilaudid. Pt. also requesting K pad. Dr. Galindo ordered tramadol prn and K pad. VSS. Call arnold within reach. Pt. educated on bedrest order.
[2023-09-03] MEDS: ULTRAM 50 MG PO (20:40)
[2023-09-03 21:33] LABS: Glucose - Point of Care 122 mg/dl (70-99)
[2023-09-04 03:26] LABS: Glucose - Point of Care 90 mg/dl (70-99)
[2023-09-04 06:08] LABS: % Basophils 0.8 % (0-2); % Eosinophils 2.1 % (0-6); % Immature Granulocytes 0.4 % (0-0.5); % Lymphocytes 32.3 % (20.5-51.1); % Monocytes 9.3 % (1.7-9.3); % Neutrophils 55.1 % (42.2-75.2); Absolute Eosinophils 0.1 10^3/uL (0-0.7); Absolute Lymphocytes 1.7 10^3/uL (1.2-3.4); Absolute Monocytes 0.5 10^3/uL (0.1-0.6); Absolute Neutrophils 2.8 10^3/uL (1.4-6.5); Hematocrit 33.2 % (37.0-47.0); Hemoglobin 11.7 g/dL (12.0-16.0); Mean Corp Hgb Conc. 35.2 g/dL (33.0-37.0); Mean Corpuscular Hgb 30.8 pg (27.0-31.0); Mean Corpuscular Volume 87.4 fL (81.0-99.0); Mean Platelet Volume 9.4 fL (7.4-10.4); Nucleated Red Blood Cells % 0 %; Platelet Count 275 10^3/uL (130-400); Red Cell Dist. Width 11.9 % (11.5-14.5); White Blood Cell Count 5.1 10^3/uL (4.8-10.8)
[2023-09-04] MEDS: ZOSYN 50 IV (06:14)
[2023-09-04] MEDS: SYNTHROID 75 MCG PO (06:14)
[2023-09-04] MEDS: NSS 1000 IV (06:19)
[2023-09-04] MEDS: TYLENOL 650 MG PO (06:21)
[2023-09-04 06:33] LABS: ALT (SGPT) 27 U/L (0-35); AST (SGOT) 30 U/L (14-36); Albumin 3.6 g/dl (3.5-5.0); Alkaline Phosphatase 60 U/L (38-126); Blood Urea Nitrogen 7 mg/dl (7-17); Calcium 9.1 mg/dl (8.4-10.2); Carbon Dioxide 25 mmol/L (22-30); Chloride 108 mmol/L (98-107); Estimated Creatinine Clearance 88 ml/min; Glucose 89 mg/dl (70-99); Potassium 4.6 mmol/L (3.5-5.1); Sodium 139 mmol/L (135-145); Total Bilirubin 0.3 mg/dl (0.2-1.3); Total Protein 5.8 g/dl (6.3-8.2); eGFR > 60.00
[2023-09-04 07:09] VITALS: BP 106/68
[2023-09-04 07:12] LABS: Glucose - Point of Care 100 mg/dl (70-99)
[2023-09-04 09:36] LABS: Glucose - Point of Care 119 mg/dl (70-99)
[2023-09-04] MEDS: NSS 250 IV (09:46)
[2023-09-04 10:00] VITALS: BP 133/86
--- NOTE | 2023-09-04 10:00 | PTCARENOTE ---
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 Pt. assisted to bed in lying position. VSS. BS check is 119. No c/o of CP/ SOB. Pt. having
unchanged RUQ in abd. MD made aware. Patient refusing any narcotics for pain. IVF bolus ordered and administered. Md on floor to assess patient. Pt. refusing Ativan.
--- NOTE | 2023-09-04 11:25 | W.PN.ID1 ---
Date of Service
Date of Service: September 04, 2023
Today's Communication
Discontinue further antibiotics.
Assessment / Plan
Right upper quadrant abdominal discomfort
Hepatic cyst
Asthma
Dyslipidemia
Hypothyroidism
Diverticulitis
Recommendations:
At present, no overt signs of an infectious process; i.e. no fevers, leukocytosis etc.
Cyst fluid without growth and with a paucity of white cells.
Discontinue further Zosyn.
����������������������������������������������������������
Chief Complaint
-: Other (Hepatic collection)
Subjective / Review of Systems
Patient seen and examined. Reports ongoing abdominal discomfort. Drain placed yesterday
Review of Systems: No Fever and No Chills
Vital Signs / Physical Exam
Vital Signs
Vital Signs
Temp Pulse Resp BP Pulse Ox
98.5 F 66 16 106/68 99
09/04/23 07:09 09/04/23 07:09 09/04/23 07:09 09/04/23 07:09 09/04/23 07:09
Physical Exam
Constitutional: No Acute Distress, Comfortable and Non-toxic
Eyes: Sclera Anicteric
Pulmonary: Non Labored
Gastrointestinal: Non Distended and Other (Right upper quadrant drain with serosanguineous fluid. No appreciable purulence.)
Extremities: Negative Cyanosis or Erythema
Skin: Negative Rash or Jaundice
Neurological: Awake and Alert
Psychological: Calm
Objective Data
Lab Data
Lab Results
09/04/23 05:50
09/04/23 05:50
ESR 30 mm/hour (0-20) H 09/02/23 21:05
PT 13.2 Sec (11.4-14.6) 09/03/23 09:41
INR 1.00 09/03/23 09:41
Estimated Creat Clear 88 ml/min 09/04/23 05:50
Lactic Acid Cancelled 09/03/23 01:00
Total Bilirubin 0.3 mg/dl (0.2-1.3) 09/04/23 05:50
AST 30 U/L (14-36) 09/04/23 05:50
ALT 27 U/L (0-35) 09/04/23 05:50
Alkaline Phosphatase 60 U/L (38-126) 09/04/23 05:50
C-Reactive Protein 44.50 mg/L (0.0-10.00) H 09/02/23 21:05
Most recent labs reviewed.
Micro Results:
09/02/23 21:05 Blood Culture - Preliminary
Blood/Venous No Growth in 24 hours- Final report to follow
09/02/23 21:06 Blood Culture - Preliminary
Blood/Venous No Growth in 24 hours- Final report to follow
09/03/23 15:58 Body Fluid Culture - Pending
Cyst Gram Stain - Preliminary
Imaging:
09/02/2023 CT abdomen/pelvis with IV contrast: There are acute inflammatory changes of a right lobe hepatic cyst. It is approximately 5 cm in diameter. No associated increased attenuation to suggest hemorrhagic cyst. Findings are therefore
suspicious for hepatic cyst infection. No other acute abnormality identified. There is an unchanged 4 mm nodule in the left lower lobe. Diverticulosis is noted without diverticulitis. Please see full dictation for additional detail.
Care Review
Plan reviewed with: Physician (Hospitalist)
[2023-09-04 11:54] VITALS: BP 133/86
[2023-09-04 12:09] LABS: Glucose - Point of Care 99 mg/dl (70-99)
--- NOTE | 2023-09-04 12:09 | W.PN.HOSP.TC ---
Addendum entered and electronically signed by Arthur Jefferson MD 09/04/23 13:13:
Also discussed with gastroenterology
Given persistent pain after cyst drain plan is to perform EGD on 09/04 to exclude other possibilities.
Patient with right upper quadrant pain on inspiration. At this point low clinical suspicion for thromboembolic disease. She has stable respiratory status with no shortness of breath, no tachycardia. Bases of the lungs on CT scan of the abdomen
with chronic changes and no evidence of pleural effusion or acute abnormalities. If negative GI workup and persistent right-sided pleuritic pain we will consider CT chest with PE protocol. Monitor closely.
Addendum entered and electronically signed by Arthur Jefferson MD 09/04/23 12:54:
Patient seen and examined
Discussed with resident
Discussed with ID, gastroenterology, nursing.
Impression/plan:*
Symptomatic hepatic cyst
� Status post aspiration CHRIS drain placement by interventional radiology on 09/02.
No evidence for infection clinically and by fluid analysis.
If no significant output, hopefully drain will be pulled later today and patient discharged home
Still with significant right upper quadrant pain at this point likely related to percutaneous tube in place.
Antibiotics had been discontinued.
NIDDM
Could resume metformin upon discharge
History of COVID/pulmonary nodules
Stable respiratory status
Original Note:
Today's Communication/Plan
-
- Discontinuing antibiotics.
- Can be discharged today after taking the drain out.
Assessment / Plan
Assessment / Plan
Impression:
Presentation with acute onset of right upper quadrant pain mostly on inspiration.
Symptomatic hepatic cyst confirmed with CT scan, findings consistent with 5 cm cyst in the inferior right lobe of the liver just adjacent to the duodenum.
Conditions prior to admission:
Hospitalization with sigmoid diverticulitis 07/03.
Hypothyroidism on replacement
Asthma without exacerbation
GERD
NIDDM.
COVID with concern for long COVID and chronic lung changes
Pulmonary nodules
History of colon polyps
Plan
09/02/23 CT Abd/pelvis W Iv Cont
1. Acute inflammatory change of hepatic right lobe 5 cm cyst. No associated increased attenuation to suggest hemorrhagic cyst. Findings are therefore suspicious for hepatic cyst infection. No other acute abnormality identified.
2. Unchanged 9 4 mm nodule left lower lobe. Chronic mild changes of fibrosis bilateral lung bases.
3. Diverticulosis without diverticulitis.
Empiric antibiotics
Percutaneous drain diagnostic and therapeutic on 09-03-23
Drained 40 ml of clear yellow fluid
Gram stain negative, no growth on preliminary cultures
Vitals and blood work has been stable
Okay to stop antibiotics now
Can discharge if the drain is removed
Gastroenterology and ID following
Hypothyroidism on replacement
Type 2 diabetes
Hold metformin acutely.
Anticipated Discharge: Today
Subjective/Interval History
-
Date of Service: September 04, 2023
Objective Data
-
Labs:
Laboratory Results
09/04/23
05:50
WBC 5.1
Hgb 11.7 L
Hct 33.2 L
Plt Count 275
Sodium 139
Potassium 4.6
Chloride 108 H
Carbon Dioxide 25
BUN 7
Creatinine 0.7
Glucose 89
Calcium 9.1
Total Bilirubin 0.3
AST 30
ALT 27
Alkaline Phosphatase 60
Vital Signs:
Vital Signs
Temp Pulse Resp BP Pulse Ox
98.5 F 98 16 133/86 100
09/04/23 07:09 09/04/23 10:00 09/04/23 10:00 09/04/23 10:00 09/04/23 10:00
I&O
09/03/23 09/04/23 09/05/23
06:59 06:59 06:59
Intake Total 1000 / 1000 2009
Balance 1000 / 1000 2009
Review of Systems
-
History Source: Patient
Constitutional: Reports No Symptoms
EENT: Reports No Symptoms Reported
Respiratory: Reports No Symptoms
Cardiac: Reports No Symptoms
Abdomen/GI: Reports Abdominal Pain (RUQ); Denies Nausea, Vomiting, Diarrhea, Constipated, Bloody Stools, Black Stools, Anorexia, Hematemesis, Bloated, GERD or Indigestion
Genitourinary: Reports No Symptoms
Musculoskeletal: Reports Other (an episode of transient bilateral fingertip tingling and numbness)
Skin: Reports No Symptoms
Neuro: Reports No Symptoms
Endocrine: Reports No Symptoms
Hematologic / Lymphatic: Reports No Symptoms
Allergy / Immunology: Reports No Symptoms
Physical Exam
-
General: No Apparent Distress and Comfortable
HEENT: Normocephalic, Atraumatic and Moist Mucous Membranes
Respiratory: Clear to Auscultation and Non Labored Respirations
Cardiac: Regular Rhythm and S1/S2
GI: Soft, Nondistended, Normal Bowel Sounds, Tender (RUQ), No Hepatosplenomegaly and Other (right side drain with clear serosanguinous fluid)
Genito-urinary: No Costovertebral Tender
Musculoskeletal: No Clubbing, No Cyanosis and No Edema
Skin: Warm, Dry and IV Access / Catheter Site
Neuro: Awake, Alert, Oriented and Nonfocal/Grossly Intact
Hematologic / Lymphatic: No Lymphadenopathy
Psych: Calm
[2023-09-04] MEDS: ULTRAM 50 MG PO ×2 (12:27→20:26)
--- NOTE | 2023-09-04 14:01 | W.PN.GI.CBS2 ---
Today's Communication / Plan
-
EGD tomorrow, IR to remove drain
Assessment / Plan
-
Pt is a 53yo with hx asthma, hypothyroidism, GERD, NIDDM, covid with concern for long covid symptoms, diverticulitis, TA polyps, rectal polyp with low grade dysplasia prior EMR in 2018. She had follow up EGD/colon in 2021 with gastric polyps,
erythema, diverticulosis, hemorrhoids, rectal scar and DC TA polyp. She relates in April and June she had CT confirmed diverticulitis with OP antibiotic treatment with improvement. Last CT in June with also noted simple hepatic cyst with
additional subCM low attenuation hepatic lesions. She now presents with onset of abdominal pain in right upper quadrant. Pain was up to 9/10 and worse with deep breath and chill without fever but some increased fatigue and decreased appetite. On
admission repeat CT with concern for inflammatory changes around right 5 cm hepatic cyst with concern for infection. Also noted 4 mm nodular opacity and diverticulosis without diverticulitis.
-RUQ pain with concern for 5 cm hepatic cyst with concern for infection (prior noted also some sub SM hepatic cysts)
-recent diverticulitis with confirmed diagnosis on CT x 2 in April and June with outpatient oral antibiotics
-tachycardia on admission now improved
-nausea
-constipation
other med problems:
-hypothyroidism
-asthma
-GERD
-NIDDM
-covid with concern for long covid and lung change in CT
-lung nodule- reviewed with patient
-hx colon polyps TA and rectal polyp low grade dysplasia with EMR in 2019
09/03/23 transhepatic drainage was done via IR, no significant purulence. No growth on culture thus far -antibiotic stopped
-- Plan is to remove the drain since is not putting out much fluid
-- Patient still has similar symptoms from admission despite drainage of the cyst
-- I think it is reasonable to proceed to an upper endoscopy just to make sure that the duodenum is normal-appearing since that is where the mild stranding was located granted it was around the cyst but that was adjacent to the duodenum
-- Patient is not on a PPI and it says she has an allergy of swelling to pantoprazole. We did not discuss that. Will proceed to an endoscopy tomorrow. If it appears she needs a PPI we will discuss options
(Patient has no GERD symptoms, no nausea or vomiting)
message sent to office for follow up with Dr. Bustamante after admission - would consider repeat imaging of her hepatic cyst to follow it
Subjective
Subjective
Date of Service: September 04, 2023
Patient complaining of pain, both from reason she was admitted but also from the drain which has not put out much fluid.
Objective
Data Reviewed
Laboratory Data:
Laboratory Results
09/04/23 05:50
09/04/23 05:50
Laboratory Results
PT 13.2 Sec (11.4-14.6) 09/03/23 09:41
INR 1.00 09/03/23 09:41
Total Bilirubin 0.3 mg/dl (0.2-1.3) 09/04/23 05:50
AST 30 U/L (14-36) 09/04/23 05:50
ALT 27 U/L (0-35) 09/04/23 05:50
Alkaline Phosphatase 60 U/L (38-126) 09/04/23 05:50
Vital Signs and I&O:
Vital Signs
Temp Pulse Resp BP Pulse Ox
98.5 F 98 16 133/86 100
09/04/23 07:09 09/04/23 10:00 09/04/23 10:00 09/04/23 10:00 09/04/23 10:00
I&O
09/03/23 09/04/23 09/05/23
06:59 06:59 06:59
Intake Total 1000 / 1000 2009
Balance 1000 / 1000 2009
Physical Exam
Physical Exam
HEENT: Anicteric
Pulmonary: Clear
GI: Soft and Tender
Extremities: No Edema
Neuro: Non Focal
--- NOTE | 2023-09-04 14:36 | PN.IRAD.UPD ---
Update Note - IRAD
- -
RLQ drain removed bedside per . Site cleaned and dressed.
[2023-09-04 15:30] VITALS: BP 116/75
--- NOTE | 2023-09-04 16:30 | CM ---
Discharge Plan of Care: Home with no needs. Off IV/AB.
[2023-09-04 17:12] LABS: Glucose - Point of Care 81 mg/dl (70-99)
[2023-09-04 21:30] LABS: Glucose - Point of Care 105 mg/dl (70-99)
[2023-09-04 23:10] VITALS: BP 110/62
[2023-09-05] VITALS (7 sets, daily range): BP systolic 12–125; BP diastolic 71–80
[2023-09-05] MEDS: SYNTHROID 75 MCG PO (06:01)
[2023-09-05] MEDS: ULTRAM 50 MG PO (06:06)
[2023-09-05 07:01] LABS: Glucose - Point of Care 90 mg/dl (70-99)
[2023-09-05 07:49] LABS: % Basophils 0.6 % (0-2); % Eosinophils 2.1 % (0-6); % Immature Granulocytes 0.2 % (0-0.5); % Lymphocytes 29.5 % (20.5-51.1); % Monocytes 7.6 % (1.7-9.3); Absolute Eosinophils 0.1 10^3/uL (0-0.7); Absolute Lymphocytes 1.6 10^3/uL (1.2-3.4); Absolute Monocytes 0.4 10^3/uL (0.1-0.6); Absolute Neutrophils 3.2 10^3/uL (1.4-6.5); Hematocrit 35.2 % (37.0-47.0); Hemoglobin 12.4 g/dL (12.0-16.0); Mean Corp Hgb Conc. 35.2 g/dL (33.0-37.0); Mean Corpuscular Hgb 30.3 pg (27.0-31.0); Mean Corpuscular Volume 86.1 fL (81.0-99.0); Mean Platelet Volume 9.5 fL (7.4-10.4); Nucleated Red Blood Cells % 0 %; Platelet Count 318 10^3/uL (130-400); Red Blood Cell Count 4.09 10^6/uL (4.20-5.40); Red Cell Dist. Width 11.7 % (11.5-14.5); White Blood Cell Count 5.3 10^3/uL (4.8-10.8)
[2023-09-05 08:32] LABS: ALT (SGPT) 25 U/L (0-35); AST (SGOT) 24 U/L (14-36); Albumin 4.1 g/dl (3.5-5.0); Alkaline Phosphatase 61 U/L (38-126); Blood Urea Nitrogen 10 mg/dl (7-17); Calcium 9.6 mg/dl (8.4-10.2); Carbon Dioxide 26 mmol/L (22-30); Chloride 105 mmol/L (98-107); Estimated Creatinine Clearance 103 ml/min; Glucose 96 mg/dl (70-99); Potassium 4.3 mmol/L (3.5-5.1); Sodium 141 mmol/L (135-145); Total Bilirubin 0.3 mg/dl (0.2-1.3); Total Protein 6.6 g/dl (6.3-8.2); eGFR > 60.00
--- NOTE | 2023-09-05 10:33 | W.PN.HOSP.TC ---
Addendum entered and electronically signed by Arthur Jefferson MD 09/05/23 15:55:
Patient seen and examined
Discussed with gastroenterology and resident
Impression/plan
Presentation with acute onset of right upper quadrant pain mostly inspiratory.
Likely symptomatic hepatic cyst
Status post percutaneous drain with no evidence of infection
Drain withdrawn with improvement of pain
Additional workup with upper endoscopy unremarkable.
Stable for discharge home
Original Note:
Today's Communication/Plan
-
- EGD was normal today.
- Pain is much less; discharge today.
Assessment / Plan
Assessment / Plan
Impression:
Presentation with acute onset of right upper quadrant pain mostly on inspiration.
Symptomatic hepatic cyst confirmed with CT scan, findings consistent with 5 cm cyst in the inferior right lobe of the liver just adjacent to the duodenum.
Conditions prior to admission:
Hospitalization with sigmoid diverticulitis 07/03.
Hypothyroidism on replacement
Asthma without exacerbation
GERD
NIDDM.
COVID with concern for long COVID and chronic lung changes
Pulmonary nodules
History of colon polyps
Plan
09/02/23 CT Abd/pelvis W Iv Cont
1. Acute inflammatory change of hepatic right lobe 5 cm cyst. No associated increased attenuation to suggest hemorrhagic cyst. Findings are therefore suspicious for hepatic cyst infection. No other acute abnormality identified.
2. Unchanged 9 4 mm nodule left lower lobe. Chronic mild changes of fibrosis bilateral lung bases.
3. Diverticulosis without diverticulitis.
Empiric antibiotics
Percutaneous drain diagnostic and therapeutic on 09-03-23
Drained 40 ml of clear yellow fluid
Gram stain negative, no growth on preliminary cultures
Vitals and blood work has been stable
Okay to stop antibiotics now
EGD today; can consider CT chest if the pain does not improve and EGD is normal
Gastroenterology and ID following
Hypothyroidism on replacement
Type 2 diabetes
Hold metformin acutely.
Anticipated Discharge: Within 24 hours
Subjective/Interval History
-
Date of Service: September 05, 2023
Objective Data
-
Labs:
Laboratory Results
09/05/23
07:21
WBC 5.3
Hgb 12.4
Hct 35.2 L
Plt Count 318
Sodium 141
Potassium 4.3
Chloride 105
Carbon Dioxide 26
BUN 10
Creatinine 0.6
Glucose 96
Calcium 9.6
Total Bilirubin 0.3
AST 24
ALT 25
Alkaline Phosphatase 61
Vital Signs:
Vital Signs
Temp Pulse Resp BP Pulse Ox
98.0 F 72 18 125/79 97
09/05/23 07:17 09/05/23 07:17 09/05/23 07:17 09/05/23 07:17 09/05/23 09:50
I&O
09/04/23 09/05/23 09/06/23
06:59 06:59 06:59
Intake Total 2009
Balance 2009
Review of Systems
-
History Source: Patient
Constitutional: Reports No Symptoms
EENT: Reports No Symptoms Reported
Respiratory: Reports No Symptoms
Cardiac: Reports No Symptoms
Abdomen/GI: Reports Abdominal Pain (RUQ (much less now)); Denies Nausea, Vomiting, Diarrhea, Constipated, Bloody Stools, Black Stools, Anorexia, Hematemesis, Bloated, GERD or Indigestion
Genitourinary: Reports No Symptoms
Musculoskeletal: Reports Other (an episode of transient bilateral fingertip tingling and numbness)
Skin: Reports No Symptoms
Neuro: Reports No Symptoms
Endocrine: Reports No Symptoms
Hematologic / Lymphatic: Reports No Symptoms
Allergy / Immunology: Reports No Symptoms
Physical Exam
-
General: No Apparent Distress and Comfortable
HEENT: Normocephalic, Atraumatic and Moist Mucous Membranes
Respiratory: Clear to Auscultation and Non Labored Respirations
Cardiac: Regular Rhythm and S1/S2
GI: Soft, Nondistended, Normal Bowel Sounds, Tender (RUQ (less now)), No Hepatosplenomegaly and Other (right side drain with clear serosanguinous fluid)
Genito-urinary: No Costovertebral Tender
Musculoskeletal: No Clubbing, No Cyanosis and No Edema
Skin: Warm, Dry and IV Access / Catheter Site
Neuro: Awake, Alert, Oriented and Nonfocal/Grossly Intact
Hematologic / Lymphatic: No Lymphadenopathy
Psych: Calm
[2023-09-05 11:23] LABS: Glucose - Point of Care 85 mg/dl (70-99)
--- NOTE | 2023-09-05 12:20 | W.DCSUMMARY ---
Documented by User: Parmjit Almaraz MD, Resident 09/05/23 12:54
Discharge Summary
Discharge Data
Date of Admission: 09/02/23
Date of Discharge: 09/05/23
-
Pending Results: No
Hospital Course
Primary discharge diagnosis
- Hepatic cyst
Secondary discharge diagnoses
- Hypothyroidism
- Asthma without exacerbation
- Gastroesophageal reflux disease
- Type II diabetes mellitus
- History of COVID, concern for long-COVID
- History of diverticulitis
- History of colon polyps
Hospital course
Ronnie Donovan, age 53, came to the emergency on 09-02-23 with worsening right-sided abdominal pain for the past several days. Outpatient CT scan on that day had showed acute inflammatory change of hepatic right lobe 5 cm cyst, raising suspicion for
an infected cyst. 40 cc thin yellow fluid was drained from the cyst, for which stain and cultures returned negative; antibiotics were stopped. She underwent an endoscopy earlier on the day of the discharge, which was fairly unremarkable. The pain
had decreased significantly by the time of her discharge, and her symptoms were likely as a result of compression from the hepatic cyst+insertion of the drain (which was taken out the day before).
She has remained afebrile with normal vital signs throughout the hospital stay. Blood work has been unremarkable. On the day of the discharge, she feels fine with the pain more of a dull ache 1-2/10 at rest. She will be discharged with her usual
home medications, and tramadol for symptomatic relief. Follow-up with primary in 1 week.
Discharge Plan
-
Patient Disposition: Home (Routine Discharge)
Discharge Diagnosis/Procedures: Symptomatic hepatic cyst
Condition: Good
Diet: As tolerated
Activity: As tolerated
Driving Restrictions: As prior to admission
Blood Work: CMP in 1 week
Instructions: Diverticulitis (DC), Acid Reflux and GERD in Adults (DC), Abdominal pain in adults - Discharge instructions, Abdominal Pain
Referrals:
Lanny Kaminski CRNP [Family Provider] -
Prescriptions:
New
acetaminophen 325 mg Tablet
650 mg PO Q4HPRN PRN (Reason: mild pain/ fever>100.5F) Qty: 30 0RF
tramadol 50 mg Tablet
50 mg PO Q4HPRN PRN (Reason: worsened pain) Qty: 20 0RF
Continued
albuterol sulfate 1 PUFF HFA aerosol inhaler
2 puff inhalation Q4HPRN PRN (Reason: sob, wheezing)
budesonide-formoterol [Symbicort] 1 PUFF HFA aerosol inhaler
2 puff inhalation R BID PRN (Reason: Lung/breathing issues)
levothyroxine 75 MCG tablet
75 mcg PO DAILY
ibuprofen 200 MG tablet
200 mg PO Q4HPRN PRN (Reason: mild pain)
multivitamin with folic acid [Tab-A-Kinga] 1 TABLET tablet
1 tab PO DAILY
metformin 500 mg Tablet
500 mg PO BID
docusate sodium [Colace] 100 mg Capsule
100 mg PO DAILY
Probiotic 20 billion cell Capsule
20,000 mmu cells PO DAILY
Discontinued
acetaminophen 325 MG tablet
650 mg PO Q6HPRN PRN (Reason: mild pain)
Discharge Orders:
Discharge Patient (As Directed); Ordered 09/05/23
Ordered By: Arthur Jefferson
Discharge Date and Time
Discharge Date/Time: 09/05/23 15:42
Print Language: WALLISIAN

Documented by User: Arthur Jefferson MD 09/05/23 15:54
Discharge Summary
Discharge Data
Date of Admission: 09/02/23
Date of Discharge: 09/05/23
Discharge Plan
-
Patient Disposition: Home (Routine Discharge)
Discharge Diagnosis/Procedures: Symptomatic hepatic cyst
Condition: Good
Diet: As tolerated
Activity: As tolerated
Driving Restrictions: As prior to admission
Blood Work: CMP in 1 week
Instructions: Diverticulitis (DC), Acid Reflux and GERD in Adults (DC), Abdominal pain in adults - Discharge instructions, Abdominal Pain
Referrals:
Lanny Kaminski CRNP [Family Provider] -
Prescriptions:
New
acetaminophen 325 mg Tablet
650 mg PO Q4HPRN PRN (Reason: mild pain/ fever>100.5F) Qty: 30 0RF
tramadol 50 mg Tablet
50 mg PO Q4HPRN PRN (Reason: worsened pain) Qty: 20 0RF
Continued
albuterol sulfate 1 PUFF HFA aerosol inhaler
2 puff inhalation Q4HPRN PRN (Reason: sob, wheezing)
budesonide-formoterol [Symbicort] 1 PUFF HFA aerosol inhaler
2 puff inhalation R BID PRN (Reason: Lung/breathing issues)
levothyroxine 75 MCG tablet
75 mcg PO DAILY
ibuprofen 200 MG tablet
200 mg PO Q4HPRN PRN (Reason: mild pain)
multivitamin with folic acid [Tab-A-Kinga] 1 TABLET tablet
1 tab PO DAILY
metformin 500 mg Tablet
500 mg PO BID
docusate sodium [Colace] 100 mg Capsule
100 mg PO DAILY
Probiotic 20 billion cell Capsule
20,000 mmu cells PO DAILY
Discontinued
acetaminophen 325 MG tablet
650 mg PO Q6HPRN PRN (Reason: mild pain)
Discharge Orders:
Discharge Patient (As Directed); Ordered 09/05/23
Ordered By: Arthur Jefferson
Discharge Date and Time
Discharge Date/Time: 09/05/23 15:42
Print Language: WALLISIAN
--- NOTE | 2023-09-05 14:52 | PTCARENOTE ---
Patient discharged home, transported by spouse. This RN removed patient's IV and reviewed discharge instructions with patient who verbalized understanding. Patient dressed and belongings gathered in room independently, occlusive dressings provided
to patient to cover previous CHRIS drain site for shower. Patient taken down to [facility] via staff escort and wheelchair.
--- NOTE | 2023-09-05 15:55 | CM ---
CM reviewed chart, patient discharge home with family, no needs. CM will continue to follow for discharge planning needs.
Plan; home no needs.
== END 2023-09-05 15:42 | disposition home or self-care (01) | DRG 443 ==
LOC: 2 NORTH 23:43
PROVIDERS: Internal Medicine Gastroenterology; Nurse Practitioner; Physician Assistant Medical; Radiology Vascular & Interventional Radiology; Student in an Organized Health Care Education/Training Program; ADMITTING PHYSICIAN Internal Medicine; ATTENDING PHYSICIAN Internal Medicine; CONSULT PHYSICIAN Internal Medicine; EMERGENCY PHYSICIAN Emergency Medicine; FAMILY PHYSICIAN Nurse Practitioner Family; OTHER PHYSICIAN Internal Medicine Infectious Disease
PROC: 0F9130Z Drainage of Right Lobe Liver with Drainage Device, Percutaneous Approach (ICD-10-PCS; 2023-09-03)
PROC: 0DJ08ZZ Inspection of Upper Intestinal Tract, Via Natural or Artificial Opening Endoscopic (ICD-10-PCS; 2023-09-05)
DX: K76.89 Other specified diseases of liver (principal); E03.9 Hypothyroidism, unspecified; J45.909 Unspecified asthma, uncomplicated; K21.9 Gastro-esophageal reflux disease without esophagitis; E11.9 Type 2 diabetes mellitus without complications; E78.00 Pure hypercholesterolemia, unspecified; R00.0 Tachycardia, unspecified; K59.09 Other constipation; R11.0 Nausea; U09.9 Post COVID-19 condition, unspecified; R91.1 Solitary pulmonary nodule; K57.30 Diverticulosis of large intestine without perforation or abscess without bleeding; K31.7 Polyp of stomach and duodenum; K31.89 Other diseases of stomach and duodenum; Z86.010 Personal history of colon polyps; Z87.19 Personal history of other diseases of the digestive system; Z79.84 Long term (current) use of oral hypoglycemic drugs
CPT/HCPCS: 49406; 74177; 80053; 81003; 81015; 82962; 83036; 83605; 84145; 85025; 85027; 85610; 85652; 86140; 87015; 87040; 87070; 87205; 99152; 99153; Q9967

== ENCOUNTER → 2024-01-09 08:35 | Outpatient (REF) | payer OTHER, SELFPAY | LOC: MRI 3T 08:35 | PROVIDERS: ATTENDING PHYSICIAN Physician Assistant; FAMILY PHYSICIAN Nurse Practitioner Primary Care; REFERRING PHYSICIAN Internal Medicine Gastroenterology | DX: K76.89 Other specified diseases of liver (principal) | CPT/HCPCS: 74183; A9575 ==

== ENCOUNTER 2024-01-09 10:18 | Emergency (ER) | payer OTHER, SELFPAY ==
[2024-01-09 10:26] VITALS: BP 117/96
--- NOTE | 2024-01-09 10:30 | EDRN ---
Dr Herman at bedside upon pt arrival: following meds administered then: 0.3 mg epi IM, 20 mg pepcid IV; luis antonio betancourt. Reports benadryl prior to arrival.
[2024-01-09] MEDS: TYLENOL 1000 MG PO (10:35)
[2024-01-09] MEDS: PEPCID 20 MG IV (10:36)
[2024-01-09] MEDS: ADRENALIN 0.3 MG IM (10:36)
[2024-01-09] MEDS: SOLU-MEDROL PF 125 MG IV (10:36)
[2024-01-09] MEDS: VENTOLIN NEBULES 2.5 MG INH ×2 (10:36→13:06)
--- NOTE | 2024-01-09 10:38 | ED.GENMED ---
History of Present Illness
General
Chief Complaint: Allergic Reaction
Source: patient
Exam Limitations: none
Time Seen by Provider: 01/09/24 10:29
Nursing documentation reviewed up to this point in time: agreed with
History of Present Illness
History of Present Illness:
53-year-old female with a past medical history of asthma, hypothyroidism who presents to the emergency room from outpatient MR for allergic reaction. Patient was receiving an MRI today of her abdomen with IV contrast; this was part of a workup for
chronic GI issues specifically a liver cyst. Shortly after injection of gadolinium she began having severe shortness of breath, coughing, hives and pruritus. A rapid response was called and she was transported to the emergency room. She was given
25 mg of Benadryl prior to transport to the emergency room. She says she has had history of anaphylaxis in the past that she says it was after being injected for allergy testing with an shelver. Most of her allergies are related to dander and
dust mites, etc. aside from coughing, shortness of breath, wheezing and hives she denies any abdominal cramping, nausea, vomiting. She denies sensation of swelling in the throat or tongue.
Past History
Past History
ED Past Medical History: Asthma, Hypercholesterolemia, Hypothyroidism and Other (has been told she has a herniated disc.)
ED Past Surgical History: Appendectomy, Orthopedic (Right and left shoulder repair) and Other (Agree with past surgical history)
Social History
Tobacco: Non-smoker
Alcohol: Occasional
Personal:
Living: with family
Employment: Employed (nurse)
Review of Systems
Review of Systems
All Other Systems: ROS reviewed and negative except as documented in HPI and ROS
EENT: Denies sore throat or mouth swelling
Respiratory: Reports cough and trouble breathing
Cardiac: Denies chest pain
ABD/GI: Denies abdominal pain, nausea or vomiting
Skin: Reports itching and rash
Neurological: Denies dizzy
Phy Exam
Physical Exam
Physical Exam:
General: Awake, alert, oriented x3; anxious
Head: Normocephalic, atraumatic
Face: Patient has some very slight eyelid edema but no swelling of the lips or cheeks
Eyes: Conjunctiva normal, pupils equal round and reactive to light
Throat: Airway intact, handling secretions, no perioral or tongue swelling, no uvular edema, no stridor, no drooling
Neck: Trachea midline, supple without meningismus
Lungs: Patient has diffuse bilateral wheezing, mild tachypnea but normal pulse ox of 100% on room air
Heart: Tachycardia with regular rhythm, no murmurs, gallops, or rubs
Abd: Soft, non distended, nontender
Neuro: No gross deficit
Skin: Patient has flushing of the face and chest, scattered hives on the upper chest and neck
Extremities: No edema in extremities, equal pulses in all extremities
Scores
Heart Failure Risk
Heart Failure Risk Score: Not Applicable
Heart Score for Chest Pain Patients
STEMI patient?: Not applicable
Withdrawal Assessment of Alcohol
Withdrawal Assessment Completed?: Not applicable
Course
Orders/Labs/Results
Orders:
Orders
01/09/24 10:21
Ipratropium/Albuterol Sulfate [Duoneb] 3 ml .ROUTE .STK-MED ONE
01/09/24 10:26
Acetaminophen [Tylenol] 1,000 mg .ROUTE .STK-MED ONE
01/09/24 10:29
IV Insert/Care/Rem.- Treatment PRN
Vital Signs- Treatment ONCE
Frequency: q30m
Albuterol Nebs [Ventolin Nebules] 2.5 mg INH R NOW STA
EPINEPHrine PF [Adrenalin] 0.3 mg IM NOW STA
Famotidine [Pepcid] 20 mg IV NOW STA
MethylPREDNISolone PF [Solu-Medrol Pf] 125 mg IV NOW STA
01/09/24 10:35
Acetaminophen [Tylenol] 1,000 mg PO NOW STA
01/09/24 12:36
Albuterol Nebs [Ventolin Nebules] 2.5 mg INH R NOW STA
Vital Signs
Initial and Last Documented VS:
Initial Vital Signs
Pulse Resp BP Pulse Ox
96 20 117/96 100
01/09/24 10:26 01/09/24 10:26 01/09/24 10:26 01/09/24 10:26
Last Documented Vital Signs
Temp Pulse Resp BP Pulse Ox
36.8 C 89 15 106/63 96
01/09/24 10:40 01/09/24 13:00 01/09/24 13:00 01/09/24 13:00 01/09/24 13:00
MDM/Problems Addressed
Differential Diagnosis Includes:
Anaphylaxis
MDM/Problems Addressed:
53-year-old female presents with anaphylactic reaction to gadolinium that was injected for outpatient MRI study today. Received 25 mg of Benadryl prior to transport to the emergency room. Arrives with vitals and exam as above�fortunately
normotensive but she does have significant wheezing, mild tachypnea, hives and pruritus. No GI symptoms. She arrives with IV already in place. Will dose with IV steroid, Pepcid. Given intramuscular epinephrine. Will give albuterol treatment.
Monitor very closely on telemetry will need to be monitored very closely with frequent reassessments.
Symptoms essentially resolved with initial treatment, still tiny amount of wheezing on lung auscultation, can repeat albuterol. Will continue to monitor status posttreatment for any rebound symptoms.
Monitored for 4 hours after exposure and patient did not have any rebound symptoms or require additional epinephrine. Vital signs normal throughout. Wheezing and symptoms all resolved. Patient requesting discharge, stable for discharge at this
point in time. Will discharge on oral steroid, antihistamines as needed. Refilled EpiPen. Patient knows to avoid any future radiologic studies containing gadolinium. All questions answered.
*Pulse Oximetry
Patient hypoxic: no
*Critical Care Note
Total Time (30-74mins, 75-104mins- exclusive of procedures): 33
comment:
Critical care statement: A total of 33 minutes of critical care time was provided for this patient. This includes management of unstable vital signs, evaluation of the patient at bedside, frequent reassessment, discussion with
consultants/hospitalist, and review of pertinent medical records. This time was separate from time utilized to perform any aforementioned documented procedures
Data Reviewed
Source: patient and other (Nursing staff/radiology staff from outpatient MR)
ED Attending Note
-
Portions of this chart may have been created with voice recognition software.� Occasional wrong word or��sound alike� substitutions may have occurred due to the inherent limitations of voice recognition software.
Discharge Plan
Departure
Discharge Problem:
Anaphylaxis
Instructions: Anaphylaxis - Discharge instructions
Prescriptions:
New
epinephrine [EpiPen 2-Isaac] 0.3 mg/0.3 mL auto-injector
0.3 mg IM ONCE Qty: 2 0RF
prednisone 50 mg tablet
50 mg PO DAILY Qty: 5 0RF
No Action
albuterol sulfate 1 PUFF HFA aerosol inhaler
2 puff inhalation Q4HPRN PRN (Reason: sob, wheezing)
budesonide-formoterol [Symbicort] 1 PUFF HFA aerosol inhaler
2 puff inhalation R BID PRN (Reason: Lung/breathing issues)
levothyroxine 75 MCG tablet
75 mcg PO DAILY
ibuprofen 200 MG tablet
200 mg PO Q4HPRN PRN (Reason: mild pain)
multivitamin with folic acid [Tab-A-Kinga] 1 TABLET tablet
1 tab PO DAILY
metformin 500 mg Tablet
500 mg PO BID
docusate sodium [Colace] 100 mg Capsule
100 mg PO DAILY
Probiotic 20 billion cell Capsule
20,000 mmu cells PO DAILY
acetaminophen 325 mg Tablet
650 mg PO Q4HPRN PRN (Reason: mild pain/ fever>100.5F) Qty: 30 0RF
tramadol 50 mg Tablet
50 mg PO Q4HPRN PRN (Reason: worsened pain) Qty: 20 0RF
Referrals:
Yessica Valencia CRNP [Family Provider] - Follow up in 1 week
Activity Restrictions/Additional Instructions:
Thank you for visiting the Emergency Department at [facility].
1. Please schedule a follow up appointment as directed. Call first thing tomorrow morning to make an appointment.
2. If indicated, please take your medications as instructed and indicated on discharge paperwork.
3. If any of your symptoms do not improve, or persist, or become more severe within 6-12 hours, please return to the emergency department for further care.
4. Please return to the emergency department if you develop a headache, neck pain/stiffness, fever greater than 100.4F, chest pain, shortness of breath, persistent nausea, vomiting, slurred speech, difficulty walking, numbness/tingling, weakness,
signs of infection or any other symptoms that are worrisome to you.
Please call [phone] if you have any questions.
Interventions
Interventions:
ED- Cardiac Assessment Last Done: 01/09/24 10:30
ED- Pulmonary Assessment Last Done: 01/09/24 10:42
ED-Skin Assessment Last Done: 01/09/24 10:30
Discharge Date and Time
Print Language: [place]
[2024-01-09 11:00] VITALS: BP 118/73
[2024-01-09 12:00] VITALS: BP 119/80
[2024-01-09 13:00] VITALS: BP 106/63
[2024-01-09 14:00] VITALS: BP 115/73
== END 2024-01-09 14:48 | disposition home or self-care (01) ==
LOC: EMR 10:18
PROVIDERS: EMERGENCY PHYSICIAN Emergency Medicine; FAMILY PHYSICIAN Nurse Practitioner Primary Care
DX: T88.6XXA Anaphylactic reaction due to adverse effect of correct drug or medicament properly administered, initial encounter (principal); T50.8X5A Adverse effect of diagnostic agents, initial encounter; Y84.8 Other medical procedures as the cause of abnormal reaction of the patient, or of later complication, without mention of misadventure at the time of the procedure; E03.9 Hypothyroidism, unspecified; E78.00 Pure hypercholesterolemia, unspecified; J45.909 Unspecified asthma, uncomplicated
CPT/HCPCS: 96374; 96375; 96372; 94640; 99284; 74183; A9575

== ENCOUNTER → 2024-02-11 07:12 | Outpatient (REF) | payer OTHER, SELFPAY | LOC: HWWDC 07:12 | PROVIDERS: ATTENDING PHYSICIAN Nurse Practitioner Primary Care | DX: E04.1 Nontoxic single thyroid nodule (principal); Z12.31 Encounter for screening mammogram for malignant neoplasm of breast | CPT/HCPCS: 76536; 77063; 77067 ==

== ENCOUNTER → 2024-04-21 12:05 | Outpatient (REF) | payer OTHER, SELFPAY | LOC: HWRAD 12:05 | PROVIDERS: ATTENDING PHYSICIAN Nurse Practitioner Primary Care | DX: U09.9 Post COVID-19 condition, unspecified (principal); R05.1 Acute cough | CPT/HCPCS: 71046 ==

== ENCOUNTER → 2024-07-01 14:31 | Outpatient (REF) | payer OTHER, SELFPAY | LOC: HWRCS 14:31 | PROVIDERS: ATTENDING PHYSICIAN Nurse Practitioner Primary Care | DX: U09.9 Post COVID-19 condition, unspecified (principal); G90.1 Familial dysautonomia [Riley-Day]; R06.09 Other forms of dyspnea; M25.50 Pain in unspecified joint | CPT/HCPCS: 93306 ==

== ENCOUNTER → 2025-02-11 06:55 | Outpatient (REF) | payer OTHER, SELFPAY | LOC: HWWDC 06:55 | PROVIDERS: ATTENDING PHYSICIAN Nurse Practitioner Primary Care | DX: Z12.31 Encounter for screening mammogram for malignant neoplasm of breast (principal) | CPT/HCPCS: 77063; 77067 ==